=== PATIENT | male | born 1990 | race Two or more races ===

== ENCOUNTER 2022-06-19 13:13 | Emergency (ER) | payer OTHER ==
[~2022-06-19] VITALS: Ht 170.2 cm; Wt 65.8 kg
--- NOTE | 2022-06-19 13:34 | NUR ---
[facility]#[id number] FOR COVID TEST, C/O COUGH AND BODY ACHES. PT IS AFEBRILE, VITALS ARE WITHIN NORMAL LIMITS. AWAITING MD ORDERS.
--- NOTE | 2022-06-19 14:00 | NUR ---
COVID TEST COLLECTED AND SENT
--- NOTE | 2022-06-19 15:02 | NUR ---
Patient discharged AND OTB in stable condition. Written and verbal after care instructions given. Patient [employer]PER[employer] understanding of instruction.
[2022-06-19 15:04] VITALS: BP 120/70
== END 2022-06-19 15:00 ==
LOC: ER 13:17
DX: J06.9 Acute upper respiratory infection, unspecified (principal); B97.89 Other viral agents as the cause of diseases classified elsewhere; Z20.822 Contact with and (suspected) exposure to COVID-19
CPT/HCPCS: 99283; 87426; 36415; 87806; 86706; 86803; C9803